=== PATIENT | female | born 1980 | race Caucasian/White ===

== ENCOUNTER 2017-09-11 10:59 | Emergency (ER) | payer MEDICAID ==
[~2017-09-11] VITALS: Ht 157.5 cm; Wt 82.5 kg
[~2017-09-11 10:59] MED LIST: IBUP-1542 PO; ONDA-43 PO
[2017-09-11 11:03] VITALS: Ht 157.5 cm; Wt 82.5 kg
[2017-09-11 12:45] LABS: URINE BLOOD (Dip) POC Negative (NEGATIVE)
[2017-09-11 13:09] LABS: URINE BLOOD (Dip) POC Negative (NEGATIVE)
--- NOTE | 2017-09-11 13:10 | ERD ---
ER Documentation Chief Complaint Chief Complaint COUGH AND CONGESTION, HEADACHE, DIZZINESS HPI 37-year-old female, previously healthy, presents to the emergency department complaining of wet cough, constant, worse at night, associated with greenish sputum, headache and subjective fever. The patient is also complaining about headaches and dizziness and is concerned about a possible . The patient has not taken any medication at this time. Denies chills, shortness of breath, chest pain. ROS SYSTEMIC symptoms: + fever, no chills, no night sweats EYE symptoms: No eyesight problems. OTOLARYNGEAL symptoms: No hearing loss. CARDIOVASCULAR symptoms: No chest pain or discomfort, no palpitations. PULMONARY symptoms: No dyspnea, + cough, no wheezing. GASTROINTESTINAL symptoms: No abdominal pain, no nausea, no vomiting SKIN no rashes Medications Home Meds Active Scripts Ibuprofen* (Motrin*) 600 Mg Tab, 600 MG PO Q6, #30 TAB Prov:MADINA,LEEANNA 07/14/17 Ondansetron Hcl* (Zofran*) 4 Mg Tab, 4 MG PO Q6H Y for NAUSEA AND OR VOMITING, # 10 TAB Prov:MADINA,LEEANNA 07/14/17 Allergies Allergies: Coded Allergies: No Known Allergy (Unverified , 07/13/17) PMhx/Soc History of Surgery: No Anesthesia Reaction: No Hx Neurological Disorder: No Hx Respiratory Disorders: No Hx Cardiac Disorders: No Hx Psychiatric Problems: No Hx Miscellaneous Medical Probl: No Hx Alcohol Use: No Hx Substance Use: No Hx Tobacco Use: No Smoking Status: Never smoker Physical Exam Vitals Vital Signs Date Time Temp Pulse Resp B/P Pulse Ox O2 Delivery O2 Flow Rate FiO2 09/11/17 11:03 98.3 91 16 119/72 96 Physical Exam Alert, oriented, hydrated, in no distress ENT: Erythematous oropharynx, Normal External Ears, Nose and Mouth. Neck: Full range of motion..~ No meningismus. Resp: Clear to auscultation bilaterally Cardio: Regular rate and rhythm, no murmurs Abd: Soft, non tender, non distended. Normal bowel sounds Skin: No petechiae or rashes Results 24 hrs Laboratory Tests Test 09/11/17 12:43 Bedside Urine pH (LAB) 7.0 Bedside Urine Protein (LAB) Negative Bedside Urine Glucose (UA) Negative Bedside Urine Ketones (LAB) Negative Bedside Urine Blood Negative Bedside Urine Nitrite (LAB) Negative Bedside Urine Leukocyte Esterase (L Negative Procedures/MDM 37-year-old female with cough. Differential diagnosis includes bronchitis, pneumonia, bronchospasm, GERD, less likely PE, or cardiovascular related. Physical examination and clinical presentation most likely consistent with viral upper respiratory infection, however, the patient requested a prescription for antibiotics. Antibiotics likely not indicated. Advised patient that this is probably a viral illness and a self-limited process that would resolve on its own. Discussed that the overuse of antibiotics may lead to antibiotic resistance in the future and can have serious side effects; however, the patient insisted on a Rx for Abx, I recommended a trial of symptomatic treatment for 48h if doesn't work, start the Abx prescribed. Departure Diagnosis: Primary Impression: Cough Condition: Stable Additional Instructions: Muchas moe por [facility] para mena servicio. Esperamos que en mena visita a la ralph de emergencia mena problema medico haya sido solucionado y que se sienta mucho mejor. Para estar seguros que mena mejoria sigue en proceso, le pedimos el favor de hacer brittany bella de seguimiento medico con mena doctor primario en los proximos 2-4 cornejo. Lleve con usted estos documentos y las medicinas recetadas. Si luis sintomas empeoran y no puede britton a mena doctor, por favor regrese a ralph de emergencia. ALONSO-JAMIR MORE MD Sep 11, 2017 13:10
[2017-09-11] MEDS ORDERED: AZIT250T94 PO (13:21)
[2017-09-11] MEDS ORDERED: TRIA15CR55 TOP (13:21)
[2017-09-11 13:38] VITALS: BP 111/75; PULSE 91; RESP 16; TEMP 98.4
== END 2017-09-11 13:40 | disposition home or self-care (01) ==
LOC: FTE 10:59
DX: R05 Cough (principal)
CPT/HCPCS: 81003; Z7502; 99284

== ENCOUNTER 2017-12-28 15:12 | Emergency (ER) | END 2017-12-28 20:17 | disposition home or self-care (01) ==

== ENCOUNTER 2018-01-02 17:30 | Emergency (ER) | END 2018-01-02 23:25 | disposition home or self-care (01) ==

== ENCOUNTER 2018-10-29 18:33 | Emergency (ER) | END 2018-10-29 22:52 | disposition home or self-care (01) ==